=== PATIENT | female | born 1965 | race Caucasian/White ===

== ENCOUNTER 2020-01-12 15:50 | Emergency (ER) | payer BC, OTHER ==
--- NOTE | 2020-01-12 17:20 | UC ---
[facility] HPI HPI Summary: 54-year-old woman being seen for telehealth visit or 2 days of influenza-like symptoms. Is having headache body aches chills. Denies any shortness of breath. Did take some acetaminophen for the headache but that did not help very much. Had a fever of 100.7 at home. Has had a slight right-sided sore throat. Patient does not believe strep throat. Patient's and son have similar symptoms. The patient's son's girlfriend's mother's positive for Covid. [facility] Previously Healthy: Yes Endocrine/Hematology History: Reports: Hx Thyroid Disease - Hypothyroidism - Surgical History Surgery Procedure, Year, and Place: Hysterectomy, C-Sections Infectious Disease History: No - Family History Known Family History: Positive: Non-Contributory - Social History Alcohol Use: Occasionally Substance Use Type: Reports: None Smoking Status (MU): Former Smoker [facility] ROS All Other Systems Reviewed And Are Negative: Yes Positive: Fever, Other - see hpi Positive: Sore Throat Cardiovascular: Negative Respiratory: Negative Positive: Myalgia Skin: Negative Neurological/Mental Status: Negative Positive: Headache Psychological: Normal Telehealth PE Appearance: Positive: Alert and Oriented, No Pain Distress, Ill-Appearing - mild Skin: Positive: Skin Color Reflects Adequate Perfusion Eyes: Positive: Normal ENT: Negative: Hoarse voice Respiratory/Lung Sounds: Positive: Normal Respiratory Effort Cardiovascular: Positive: Skin Color Reflects Adequate Perfusion Musculoskeletal: Positive: Normal Tone Neurological: Positive: Alert, Oriented to Person Place, Time Psychiatric: Positive: Normal [facility] Course/Dx Assessment/Plan: Influenza is negative. Covid was tested. Patient is to be an self-isolation until released. I discussed with the patient that if she gets short of breath to get further evaluation. Provider Diagnoses: Influenza-like illness [facility] Disposition Provider Recommendation for Treatment: [facility] Telehealth Visit: Patient Consented Verbally to Telehealth Visit Telehealth Patient Statement: The patient should understand that they are communicating with their provider via a secure communication platform and that all the same privacy and confidentiality rules apply. They will also be responsible for copayments or coinsurances that apply to any Telehealth visit. Patient Identifiers: 2 Patient Identifiers Verified for Telehealth Visit Telehealth Visit Start Time: 16:50 Telehealth Visit End Time: 17:35 Telehealth Provider Attestation: The above services were appropriate to provide in a Telehealth setting.
[2020-01-12 17:27] LABS: Influenza A Molecular Negative (Negative); Influenza B Molecular Negative (Negative)
--- NOTE | 2020-01-16 08:19 | UC ---
- Progress Note Progress Note: Labs reviewed: Covid 19 undetected RN to inform patient of the lab results. Course/Dx - Diagnoses Provider Diagnoses: Influenza-like illness Discharge ED - Sign-Out/Discharge Documenting (check all that apply): Post-Discharge Follow Up All imaging exams completed and their final reports reviewed: No Studies - Discharge Plan Condition: Stable Disposition: HOME Patient Education Materials: Fever in Adults (ED), Viral Syndrome (ED) Forms: COVID-19 Tested & Isolation Referrals: Vlad Quintana MD [Primary Care Provider] - Additional Instructions: MAINTAIN AT HOME ISOLATION. FOLLOW UP WITH YOUR DOCTOR IF NOT COMPLETELY IMPROVED. GO TO THE EMERGENCY DEPARTMENT IF WORSE; SHORTNESS OF BREATH OR ANY QUESTIONS OR CONCERNS. - Billing Disposition and Condition Condition: STABLE Disposition: Home
== END 2020-01-12 17:45 | disposition home or self-care (01) ==
LOC: UCCORT 15:50
DX: R51 Headache (principal); M79.10 Myalgia, unspecified site; R50.9 Fever, unspecified; J02.9 Acute pharyngitis, unspecified; Z20.828 Contact with and (suspected) exposure to other viral communicable diseases; E03.9 Hypothyroidism, unspecified; Z79.890 Hormone replacement therapy; Z87.891 Personal history of nicotine dependence
CPT/HCPCS: 87635; 99201; G0463; Q3014